=== PATIENT | female | born 1985 | race Caucasian/White ===

== ENCOUNTER 2018-05-05 22:58 | Emergency (ER) | payer SELFPAY ==
[2018-05-05 23:27] VITALS: BP 106/55
[2018-05-05 23:44] LABS: MEAN CORPUSCULAR HEMOGLOBIN 26.5 pg (28.0-34.0); MEAN CORPUSCULAR VOLUME 84.3 fl (80.0-100.0)
[2018-05-05 23:48] LABS: eGFR (Non-African) > 60
--- NOTE | 2018-05-05 23:54 | ED Physician Documentation ---
General Adult - HISTORIAN Historian: patient - HPI Stated Complaint: Chest pain with shortness of air Chief Complaint: General Adult Further Comments: yes (32 year old female patient brought in by EMS with complaints of chest pain 01/13. 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 Allowed EKG and blood draw from nursing. On my assess, patient refuses ekg monitor tech, refuses IV line. Patient throwing equipment in room, yelling at staff.) - ROS CONST: no problems (patient refuses to answer) - PAST HX Past History: none (patient refuses to answer) Allergies/Adverse Reactions: Allergies Allergy/AdvReac Type Severity Reaction Status Date / Time acetaminophen [From Tylenol] Allergy Verified 05/05/18 23:14 cephalexin [From Keflex] Allergy Verified 05/05/18 23:14 Latex, Natural Rubber Allergy Verified 05/05/18 23:14 Penicillins Allergy Verified 05/05/18 23:14 povidone-iodine AdvReac Rash Verified 05/05/18 23:14 [From Betadine] soap [From Betadine] AdvReac Rash Verified 05/05/18 23:14 Home Medications: Ambulatory Orders Medication Instructions Recorded NK 05/05/18 - SOCIAL HX Smoking History: denies: non-smoker - FAMILY HX Family History: No - VITAL SIGNS Vital Signs: Vital Signs Temp Pulse Resp BP Pulse Ox 97.1 F L 80 20 106/55 96 05/05/18 23:00 05/05/18 23:00 05/05/18 23:00 05/05/18 23:00 05/05/18 23:00 - REVIEWED ASSESSMENTS Nursing Assessment Reviewed: Yes Vitals Reviewed: Yes Progress - Progress Progress: Patient up walking in ER, yelling at staff, refuses ekg monitor tech, refuses IV line, refuses assessment. Explained treatment plan. Patient refuses to cooperate. No shortness of breath. Patient yelling at myself, "You're a bitch!" Explained to patient that she could return to room for care. Patient refuses. Left AMA. ED Results Lab/Radiology - Lab Results Lab Results: Lab Results 05/05/18 05/05/18 23:25 23:25 WBC 7.90 K/ul K/ul (4.00-12.00) RBC 4.67 M/ul M/ul (3.90-5.20) Hgb 12.4 g/dL g/dL (12.0-16.0) Hct 39.4 % % (34.5-46.5) MCV 84.3 fl fl (80.0-100.0) MCH 26.5 pg L pg (28.0-34.0) MCHC 31.4 g/dL g/dL (30.0-36.0) RDW 15.4 % H % (11.3-14.3) Plt Count 246 K/mm3 K/mm3 (130-400) Sodium 136 mmol/L mmol/L (136-145) Potassium 3.9 mmol/L mmol/L (3.5-5.1) Chloride 106 mmol/L mmol/L (98-107) Carbon Dioxide 26 mmol/L mmol/L (22-30) BUN 14 mg/dL mg/dL (7-17) Creatinine 0.50 mg/dL L mg/dL (0.52-1.04) Estimated Creat Clear 388 Est GFR ( Amer) > 60 (60 - ) Est GFR (Non-Af Amer) > 60 (60 - ) Glucose 94 mg/dL mg/dL (74-106) Calcium 8.4 mg/dL mg/dL (8.4-10.2) Total Bilirubin < 0.2 mg/dL L mg/dL (0.2-1.3) AST 14 U/L L U/L (15-46) ALT 396 U/L H U/L (13-69) Alkaline Phosphatase 80 U/L U/L (38-126) Total Protein 6.7 g/dL g/dL (6.3-8.2) Albumin 3.7 g/dL g/dL (3.5-5.0) - Orders Orders: ED Orders Category Date Time Status CBC PLATELETS NO DIFF Stat Lab 05/05/18 23:25 Completed CMP Stat Lab 05/05/18 23:25 Completed DRUG SCREEN URINE MEDICAL ONLY Stat Lab 05/05/18 23:15 Ordered UA W MICRO [UA W/MICRO IF INDICATED] Stat Lab 05/05/18 23:15 Ordered EKG WITH COMPARISON Stat Ther 05/05/18 Ordered General Adult Physical Exam - PHYSICAL EXAM GENERAL APPEARANCE: agitated and uncooperative NEURO: No: oriented X3 Discharge Clincal Impression: Left against medical advice Condition: Stable Decision to Admit: NO Decision Time: 23:55
[2018-05-06 11:23] LABS: CANNABINOIDS NEGATIVE ng/mL (< 50); METHYLENEDIOXYMETHAMPHETAMINE NEGATIVE ng/mL (<500)
[2018-05-06 11:25] LABS: APPEARANCE,URINE CLEAR (CLEAR); COLOR,URINE YELLOW (YELLOW)
[2018-05-06 11:26] LABS: OCCULT BLOOD,URINE NEGATIVE (NEGATIVE); UROBILINOGEN URINE 0.2 Eu (0.2-1.0)
== END 2018-05-05 23:50 | disposition left against medical advice (07) ==
LOC: EDSEX 22:58 → ED 22:58
DX: R07.9 Chest pain, unspecified (principal); Z53.9 Procedure and treatment not carried out, unspecified reason
CPT/HCPCS: 80053; 80377; 81002; 85027; 99283; G0481